=== PATIENT | male | born 1990 ===

== ENCOUNTER 2016-06-14 17:22 | Emergency (ER) | payer SELFPAY ==
[2016-06-14 17:00] LABS: EOS % 2.2 % (0-7); EOSINOPHIL ABSOLUTE COUNT 0.1 tho/cmm (0.0-0.7); HCT-HEMATOCRIT 36.9 % (36.0-53.5); HGB-HEMOGLOBIN 12.7 gm/dl (13.5-17.0); LYMPH % 47.8 % (20-45); LYMPH ABSOLUTE COUNT 1.9 tho/cmm (0.8-4.5); MCH (MEAN CORPUSCULAR HGB) 30.2 pg (28.0-32.0); MCHC MEAN CORPUSCULAR HGB CONC 34.4 % (32.0-36.0); MCV (MEAN CELL VOLUME) 87.9 fl (82.0-96.0); MEAN PLATELET VOLUME 9.5 cmc (9.4-12.4); MONO % 10.6 % (0-12); MONOCYTE ABSOLUTE COUNT 0.4 tho/cmm (0.0-1.2); NEUTROPHIL ABSOLUTE COUNT 1.6 tho/cmm (1.6-8.0); NEUTROPHIL-AUTOMATED 1.6 tho/cmm (1.6-8.0); NEUTROPHILS % 38.4 % (40-80); PLATELET COUNT 242 tho/cmm (150-450); RED CELL DISTRIBUTION WIDTH 12.9 % (12.4-16.4); WHITE BLOOD COUNT 4.1 tho/cmm (4.0-10.0)
[~2016-06-14 17:22] MED LIST: CATAPRES0.1 M1 PO; CYCLOBENZAPRINE5 M1 PO; ULTRAM50 M1 PO
[2016-06-14] MEDS ORDERED: KEFLEX500 M4 PO (17:32)
== END 2016-06-14 17:43 ==
LOC: EDMED 17:22
PROVIDERS: Emergency Medicine
DX: R59.0 Localized enlarged lymph nodes (principal); F41.9 Anxiety disorder, unspecified; F17.200 Nicotine dependence, unspecified, uncomplicated; Z79.899 Other long term (current) drug therapy